=== PATIENT | male | born 1935 | race Caucasian/White ===

== ENCOUNTER 2020-05-15 10:15 | Outpatient (CLI) | payer SELFPAY | END 2020-05-15 23:59 | disposition home or self-care (01) | LOC: LAB.N 10:15 | PROVIDERS: ATTEND Family Medicine | DX: L03.115 Cellulitis of right lower limb (principal) | CPT/HCPCS: 81599; 87070; 87075; 87205 ==

== ENCOUNTER 2023-03-03 08:21 | Emergency (ER) | payer OTHER ==
[2023-03-03] MEDS ORDERED: SODIUM CHLORIDE 0.9% 1,000 ML IV STA (08:53)
--- NOTE | 2023-03-03 08:58 | ED Physician Documentation ---
History of Present Illness - Stated complaint Stated Complaint: NO ENGERGY - Chief complaint Chief Complaint: General - History obtained from History obtained from: Patient - History of Present Illness Timing: How many days ago (10) - Additonal information Additional information: Sebastian Raymundo is an 87-year-old male with a history of COPD who had COVID starting 02 February. He did take some Paxlovid. He resolved his infection and felt well worked for about 2 days hard on his home from the things that had lapsed. Following that he felt low energy and was unable to get the willingness to get up and do things at home. He indicates that he otherwise feels that he is eating and drinking normally he has not had other specific symptoms. He notes easy fatigue exertional dyspnea and not feeling like doing anything. He has had his immunization series and boosters and now has had COVID as well. Review of Systems Constitutional: reports: Fatigue. denies: Fever, Chills, Myalgias Eyes: denies: Decreased vision Ears: denies: Ear pain Nose: denies: Rhinorrhea / runny nose, Congestion Throat: denies: Sore throat Cardiac: denies: Chest pain / pressure, Palpitations, Pedal edema, Calf pain Respiratory: reports: Dyspnea. denies: Cough, Hemoptysis, Wheezing GI: reports: Constipation (similar to always takes meds for this). denies: Abdominal Pain, Nausea, Vomiting, Diarrhea : reports: Hesitancy. denies: Dysuria, Frequency Skin: denies: Rash Musculoskeletal: denies: Neck pain, Back pain, Extremity pain Neurologic: denies: Generalized weakness, Focal weakness, Numbness, Difficulty speaking, Altered mental status, Headache, Head injury, LOC PD PAST MEDICAL HISTORY - Allergies Allergies/Adverse Reactions: Allergies Allergy/AdvReac Type Severity Reaction Status Date / Time No Known Drug Allergies Allergy Verified 03/03/23 08:26 PD ED PE NORMAL - Vitals Vital signs reviewed: Yes (normal ) - General General: Alert and oriented X 3, No acute distress, Well developed/nourished - HEENT HEENT: Atraumatic, PERRL, EOMI - Neck Neck: Supple, no meningeal sign, No bony TTP - Cardiac Cardiac: RRR, No murmur - Respiratory Respiratory: No respiratory distress, Clear bilaterally - Abdomen Abdomen: Normal bowel sounds, Soft, Non tender, Non distended, No organomegaly - Back Back: No CVA TTP, No spinal TTP - Derm Derm: Normal color, Warm and dry, No rash - Extremities Extremities: No deformity, No edema - Neuro Neuro: Alert and oriented X 3, 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, No motor deficit, No sensory deficit, Normal speech Eye Opening: Spontaneous Motor: Obeys Commands Verbal: Oriented GCS Score: 15 - Psych Psych: Normal mood, Normal affect Results - Vitals Vitals: Vital Signs - 24 hr 03/03/23 08:28 Temperature 36.4 C L Heart Rate 95 Respiratory 18 Rate Blood Pressure 138/77 H O2 Saturation 98 Oxygen O2 Source Room air - Labs Labs: Laboratory Tests 03/03/23 03/03/23 03/03/23 09:02 09:02 11:45 WBC 8.0 RBC 4.56 L Hgb 15.2 Hct 45.2 MCV 99.1 H MCH 33.3 H MCHC 33.6 RDW 12.5 Plt Count 271 MPV 8.8 Neut # (Auto) 5.9 Lymph # (Auto) 1.2 L [place] # (Auto) 0.7 Eos # (Auto) 0.3 Baso # (Auto) 0.0 Absolute Nucleated RBC 0.00 Nucleated RBC % 0.0 Sodium 137 Potassium 4.3 Chloride 104 Carbon Dioxide 26 Anion Gap 7.0 BUN 20 Creatinine 0.9 Estimated GFR (MDRD) 80 L Glucose 104 Calcium 9.7 Total Bilirubin 0.5 AST 10 ALT 10 Alkaline Phosphatase 57 Total Protein 7.0 Albumin 3.6 Globulin 3.4 Albumin/Globulin Ratio 1.1 Lipase 8 L Urine Color YELLOW Urine Clarity CLEAR Urine pH 6.0 Ur Specific [place] 1.020 Urine Protein NEGATIVE Urine Glucose (UA) NEGATIVE Urine Ketones NEGATIVE Urine Occult Blood NEGATIVE Urine Nitrite NEGATIVE Urine Bilirubin NEGATIVE Urine Urobilinogen 0.2 (NORMAL) Ur Leukocyte Esterase SMALL H Urine RBC 0-5 Urine WBC 0-3 Ur Squamous Epith Cells RARE Squamous Urine Bacteria Rare Ur Microscopic Review INDICATED Urine Culture Comments INDICATED - Rads (name of study) chest 2 view Relevant Findings:: Prelim report reviewed (Impression: Limited chest examination, without any acute abnormality identified. Postoperative and degenerative changes are seen. Remote appearing anterior wedge deformity of the approximate L1 level noted), EMP independent interpretation of test Procedures - Bedside sono Bedside sono by EMP: With use of POCUS the bladder is imaged it is nontender there is urine in it it does not look overdistended - IVC sono (time) 0850 Bedside IVC sono: IVC measures (cm) (1.12), Dehydration (es t1 liter deficit) PD Medical Decision Making - ED course Complexity details: reviewed results, re-evaluated patient, considered differential, d/w patient ED course: 87-year-old male with a history of COPD presents to the emergency department with fatigue and listlessness and inability to get the energy to perform the things he wants to do. He has had COVID 1 month ago. I suspect he has a long COVID and here today we are undertaking investigation for other explanations including blood work chest x-ray and a urinalysis evaluation of the bladder following urination and providing fluid for mild dehydration. Departure - Departure Disposition: 01 Home, Self Care Clinical Impression: Long COVID Condition: Stable Follow-Up: Your, doctor [Other] Comments: Sebastian, today we did not find anything specific on the work-up we did. Nothing to explain your profound fatigue. We did find minimal dehydration but the description of your symptoms fits most closely with "Long Covid" This usually lasts about 6 months and can be frustrating. Dehydration can become worse when you do not feel like getting up to get water so be careful to avoid this complication. There is no specific treatment for the long covid. Check back with your regular doctor before the end of the month.
[2023-03-03 09:00] VITALS: BP 138/77; O2SAT 98
[2023-03-03 09:06] LABS: BASOPHILS % (AUTO) 0.5 %; EOSINOPHILS # (AUTO) 0.3 10^3/uL (0.0-0.7); EOSINOPHILS % (AUTO) 3.1 %; HCT - HEMATOCRIT 45.2 % (42.0-52.0); HGB - HEMOGLOBIN 15.2 g/dL (14.0-18.0); LYMPHOCYTES # (AUTO) 1.2 10^3/uL (1.5-3.5); LYMPHOCYTES % (AUTO) 14.3 %; MEAN CORPUSCULAR HEMOGLOBIN 33.3 pg (27.0-31.0); MEAN CORPUSCULAR HGB CONC 33.6 g/dL (32.0-36.0); MEAN CORPUSCULAR VOLUME 99.1 fL (80.0-94.0); MEAN PLATELET VOLUME 8.8 fL (7.4-11.4); MONOCYTES # (AUTO) 0.7 10^3/uL (0.0-1.0); MONOCYTES % (AUTO) 8.2 %; NEUTROPHILS # (AUTO) 5.9 10^3/uL (1.5-6.6); NEUTROPHILS % (AUTO) 73.3 %; PLT - PLATELET COUNT 271 10^3/uL (130-450); RED BLOOD COUNT 4.56 10^6/uL (4.70-6.10); RED CELL DISTRIBUTION WIDTH 12.5 % (12.0-15.0)
[2023-03-03 09:21] LABS: ALBUMIN 3.6 g/dL (3.2-5.5); ALBUMIN/GLOBULIN RATIO 1.1 (1.0-2.2); BILIRUBIN,TOTAL 0.5 mg/dL (0.2-1.0); CALCIUM 9.7 mg/dL (8.5-10.3); CREATININE 0.9 mg/dL (0.6-1.3); POTASSIUM 4.3 mmol/L (3.5-4.5)
--- NOTE | 2023-03-03 09:28 | XRAY Report ---
PROCEDURE: Chest 2 View X-Ray INDICATIONS: Shortness of breath TECHNIQUE: 2 views of the chest were acquired. COMPARISON: None. FINDINGS: Surgical changes and devices: A pacer device can be seen. Lungs and pleura: An incomplete inspiratory result is noted, with low lung volumes and crowding of t he vascular markings. No focal infiltrates are seen. No large pneumothorax or large pleural effusion can be seen. Mediastinum: Mediastinal contours appear normal. Heart size is normal. Calcification is seen of th e aortic arch. Bones and chest wall: No suspicious bony lesions. Age-appropriate degenerative changes are seen. A remote appearing anterior wedge deformity can be seen at the approximate L1 level, without acute fea tures. Overlying soft tissues appear unremarkable. IMPRESSION: Limited chest examination, without an acute abnormality identified. Postoperative and degenerative changes are seen. Remote appearing anterior wedge deformity of the approximate L1 level noted. Reviewed by: William Santana MD on 03/03/2023 8:27 AM [place] Approved by: William Santana MD on 03/03/2023 8:27 AM [place] Station ID: [id number]
[2023-03-03 11:51] LABS: BILIRUBIN,URINE NEGATIVE (NEGATIVE); GLUCOSE, URINE (UA) NEGATIVE (NEGATIVE); KETONES,URINE (UA) NEGATIVE (NEGATIVE); LEUKOCYTE ESTERASE, URINE SMALL (NEGATIVE); NITRITE,URINE NEGATIVE (NEGATIVE); OCCULT BLOOD,URINE NEGATIVE (NEGATIVE); PROTEIN,URINE NEGATIVE (NEGATIVE); UROBILINOGEN,URINE 0.2 (NORMAL) E.U./dL (NORMAL)
[2023-03-03 12:03] LABS: BACTERIA,URINE Rare /HPF (None Seen); CLARITY,URINE CLEAR (CLEAR); RBC,URINE 0-5 /HPF (0-5); SQUAMOUS EPITHELIAL CELL,UR RARE Squamous (<= Few); WBC,URINE 0-3 /HPF (0-3)
== END 2023-03-03 12:30 | disposition home or self-care (01) ==
LOC: ED 08:21
DX: U07.1 COVID-19 (principal)
CPT/HCPCS: 36415; 80053; 81001; 81003; 83690; 85025; 87086; 96360; 96361; 99283

== ENCOUNTER 2023-05-17 12:45 | Outpatient (CLI) | payer OTHER | END 2023-05-17 13:00 | disposition home or self-care (01) | LOC: LAB.N 12:45 | PROVIDERS: ATTEND Specialist | DX: R30.0 Dysuria (principal) | CPT/HCPCS: 87086; 87181 ==